=== PATIENT | female | born 1980 | race Two or more races ===

== ENCOUNTER 2024-09-09 14:20 | Emergency (ER) | payer MEDICAID, OTHER ==
[~2024-09-09] VITALS: Ht 167.6 cm; Wt 81.0 kg
--- NOTE | 2024-09-09 14:31 | ED.PDOC ---
History of Present Illness HPI Comments 44 year old female brought in by EMS presents to the ED with a chief complaint of PICC line removal onset today (09/09/24). Per EMS, patient is at assisted care facility due to an infected dog bite on LT arm, received antibiotics treatment. Facility tried to remove PICC line from RT chest, were unable to, was sent to ED. Patient has no further complaints. PMHx HTN. Denies headache, dizziness, chest pain, shortness of breath, nausea, vomiting, diarrhea. No other symptoms or modifying factors present at this time. Chief Complaint: Tube Replacement Time Seen by MD: 14:22 Reviewed Notes: Medications, Allergies Allergies: Coded Allergies: NO KNOWN ALLERGIES (Unverified , 09/09/24) Information Source: Patient, Emergency Med Personnel Mode of Arrival: EMS Severity: Moderate Timing: Hours Duration: Since onset Prehospital treatment: None Past Medical History PAST MEDICAL HISTORY: HTN Surgical History: Denies all surgeries GROUP SOCIAL WORKER History: No Pertinent GROUP SOCIAL WORKER History Family History Family History: Reviewed,noncontributory to illness, No family hx of Cancer, No family hx of DM, No family hx of Heart aruna, No family hx of HTN, No family hx ofKidney aruna, No family hx of Liver aruna, No family hx of Lung aruna, No family hx of Stroke Social History Smoker: Non-Smoker Alcohol: Denies ETOH Use Drugs: Denies Drug Use Lives In: Assisted Care Constitutional: denies: chills, diaphoresis, fatigue, fever, malaise, sweats, weakness, others EENTM: denies: blurred vision, double vision, ear bleeding, ear discharge, ear drainage, ear pain, ear ringing, eye pain, eye redness, hearing loss, mouth pain, mouth swelling, nasal discharge, nose bleeding, nose congestion, nose pain, photophobia, tearing, throat pain, throat swelling, voice changes, others Respiratory: denies: cough, hemoptysis, orthopnea, SOB at rest, shortness of breath, SOB with excertion, stridor, wheezing, others Cardiovascular: denies: chest pain, dizzy spells, diaphoresis, Dyspnea on exertion, edema, irregular heart beat, left arm pain, lightheadedness, palpitations, PND, syncope, others Gastrointestinal: denies: abdomen distended, abdominal pain, blood streaked bowels, constipated, diarrhea, dysphagia, difficulty swallowing, hematemesis, melena, nausea, poor appetite, poor fluid intake, rectal bleeding, rectal pain, vomiting, others Genitourinary: denies: abnormal vagina bleeding, burning, dyspareunia, dysuria, flank pain, frequency, hematuria, incontinence, pain, , vagina discharge, urgency, others Neurological: denies: dizziness, fainting, headache, left sided numbness, left sided weakness, numbness, paresthesia, pre-existing deficit, right sided numbness, right sided weakness, seizure, speech problems, tingling, tremors, weakness, others Musculoskeletal: denies: back pain, gout, joint pain, joint swelling, muscle pain, muscle stiffness, neck pain, others Integumetry: denies: bruises, change in color, change in hair/nails, dryness, laceration, lesions, lumps, rash, wounds, others Allergic/Immunocompromised: denies: Difficulty Healing, Frequent Infections, Hives, Itching, others Hematologic/Lymphatic: denies: anemia, blood clots, easy bleeding, easy bruising, swollen glands, others Endocrine: denies: excessive hunger, excessive sweating, excessive thirst, excessive urination, flushing, intolerance to cold, intolerance to heat, unexplained weight gain, unexplained weight loss, others Psychiatric: denies: anxiety, bipolar disorder, depression, hopeless, panic disorder, schizophrenia, sleepless, suicidal, others All Other Systems: Reviewed and Negative Physical Exam General Appearance: No Apparent Distress, Normal HEENT: Normal ENT Inspection, Pharynx Normal, TMs Normal Neck: Full Range of Motion, Non-Tender, Normal, Normal Inspection Respiratory: Chest Non-Tender, Lungs Clear, No Accessory Muscle Use, No Re spiratory Distress, Normal Breath Sounds Cardiovascular: No Edema, No JVD, No Murmur, No Gallop, Normal Peripheral Pulses, Regular Rate/Rhythm Breast Exam: Deferred Gastrointestinal: No Organomegaly, Non Tender, No Pulsatile Mass, Normal Bowel Sounds, Soft Genitalia: Deferred Pelvic: Deferred Rectal: Deferred Extremities: No calf tenderness, Normal capillary refill, Normal inspection, Normal range of motion, Non-tender, No pedal edema Musculoskeletal : Apperance: Normal Neurologic: Alert, mail machine operator II-XII nml as Tested, No Motor Deficits, Normal Affect, Normal Mood, No Sensory Deficits Cerebellar Function: Normal Reflexes: Normal Skin: Dry, Normal Color, Warm Lymphatic: No Adenopathy Was a procedure done? Was a procedure done?: No Differential Dx Considerations may include: tunnel iv access removal, evaluation, infection, malfunction X-Ray, Labs, Meds, VS Vital Signs Date Time Temp Pulse Resp B/P (MAP) Pulse Ox O2 Delivery O2 Flow Rate FiO2 09/09/24 14:30 98.7 92 18 138/98 (111) 99 98.7 Time of 1ST Reevaluation: 14:52 Reevaluation 1ST: Unchanged Time of 2ND Reevaluation: 16:22 Reevaluation 2ND: Unchanged Patient Education/Counseling: Diagnosis, Treatment, Prognosis, Need For Follow Up Family Education/Counseling: No Family Present Additional Information The following tests were ordered, and results were reviewed by me: JONAH CHEST Additional Information was gathered from interviewing the following independent historians: EMS I reviewed and agreed with the following test results read by other providers: JONAH CHEST I discussed treatment and results with medical personnel and: Patient due to confusion about medical records, as pt was registered as n new patient, we were unable to find the record of the iv placement. this was finally found by the pICC RN, who saw a record that this is an IR placed line and needs to be removed by IR. pt will have to schedule to return for line removal with IR Departure 1 Departure Time of Disposition: 16:23 Impression: Primary Impression: Tunneled central venous catheter present Disposition: 01 HOME / SELF CARE / HOMELESS Condition: Good Additional Instructions: please have your doctor arrange for interventional radiology to remove the unuse d tunnel iv line. you may also come to the ER if unable to make arrangement Discharged With: Self Critical Care Note Critical Care Time?: No Stability Stability form required: No I personally scribed for KAUSHIK POTTER MD ([email or web address]) on 09/09/24 at 14:31. Electronically submitted by Pratibha Winn ([email or web address]). I personally scribed for KAUSHIK POTTER MD ([email or web address]) on 09/09/24 at 14:31. Electronically submitted by Pratibha Winn ([email or web address]). KAUSHIK POTTER MD Sep 09, 2024 14:31
--- NOTE | 2024-09-09 14:58 | DVH ---
CHEST RADIOGRAPH Indication: cvc position Technique: Single frontal view of the chest was obtained Comparison: None FINDINGS: Lines and Tubes: Right internal jugular catheter in place in superior vena cava above the right atriu m Lungs: No focal consolidation. Pleura: No effusion. PNEUMOTHORAX: NONe VISUALIZED.. Cardiomediastinal contours: Unremarkable Bones: No acute osseous abnormality. IMPRESSION: 1. Right internal jugular catheter good position in the distal superior vena cava above the right atr ium. 2. No pneumothorax on the right.
[2024-09-09 19:14] VITALS: BP 150/96; TEMP 98.1
[2024-09-09 19:16] VITALS: PULSE 89; RESP 19; O2SAT 97
== END 2024-09-09 20:13 | disposition home or self-care (01) ==
LOC: ER 14:20 → EDBD 14:20 → ER 20:13
DX: Z95.9 Presence of cardiac and vascular implant and graft, unspecified (principal); I10 Essential (primary) hypertension
CPT/HCPCS: 71045

== ENCOUNTER 2024-09-13 05:55 | Emergency (ER) | payer MEDICAID ==
[~2024-09-13] VITALS: Ht 167.6 cm; Wt 83.0 kg
--- NOTE | 2024-09-13 06:58 | ED.PDOC ---
History of Present Illness HPI Comments 44F presents to the ER w/ no prior Hx associated to the c/c of Tube removal. Pt reports that she is from [facility] due from an infected dog bite on the left forearm/right tricep on July 17, which have currently healed into a scar. Myrna Hansen tried to remove PICC line from RT chest, were unable to, so the pt went to the ED. PMHx of HTN. Denies chills, fever, N/V/D, SOB, CP no other associated symptoms, modifiers, recent injuries or sick contacts at this time. Chief Complaint: Tube Replacement Time Seen by MD: 06:50 Reviewed Notes: Nurses Notes, Medications, Allergies Allergies: Coded Allergies: NO KNOWN ALLERGIES (Unverified , 09/09/24) Information Source: Patient Mode of Arrival: Ambulatory Severity: Moderate Timing: Came on: Gradually Duration: Since onset Prehospital treatment: None Past Medical History PAST MEDICAL HISTORY: HTN Surgical History (Other): PICC Line TRAFFIC RATE ANALYST History: No Pertinent TRAFFIC RATE ANALYST History Family History Family History: Reviewed,noncontributory to illness, Unknown Social History Smoker: Non-Smoker Alcohol: Denies ETOH Use Drugs: Denies Drug Use Lives In: Assisted Care Constitutional: reports: others (PICC Line Removal); denies: chills, diaphoresis, fatigue, fever, malaise, sweats, weakness EENTM: denies: blurred vision, double vision, ear bleeding, ear discharge, ear drainage, ear pain, ear ringing, eye pain, eye redness, hearing loss, mouth pain, mouth swelling, nasal discharge, nose bleeding, nose congestion, nose pain, photophobia, tearing, throat pain, throat swelling, voice changes, others Respiratory: denies: cough, hemoptysis, orthopnea, SOB at rest, shortness of breath, SOB with excertion, stridor, wheezing, others Cardiovascular: denies: chest pain, dizzy spells, diaphoresis, Dyspnea on exertion, edema, irregular heart beat, left arm pain, lightheadedness, palpitations, PND, syncope, others Gastrointestinal: denies: abdomen distended, abdominal pain, blood streaked bowels, constipated, diarrhea, dysphagia, difficulty swallowing, hematemesis, melena, nausea, poor appetite, poor fluid intake, rectal bleeding, rectal pain, vomiting, others Genitourinary: denies: abnormal vagina bleeding, burning, dyspareunia, dysuria, flank pain, frequency, hematuria, incontinence, pain, , vagina discharge, urgency, others Neurological: denies: dizziness, fainting, headache, left sided numbness, left sided weakness, numbness, paresthesia, pre-existing deficit, right sided numbness, right sided weakness, seizure, speech problems, tingling, tremors, weakness, others Musculoskeletal: denies: back pain, gout, joint pain, joint swelling, muscle pain, muscle stiffness, neck pain, others Integumetry: denies: bruises, change in color, change in hair/nails, dryness, laceration, lesions, lumps, rash, wounds, others Allergic/Immunocompromised: denies: Difficulty Healing, Frequent Infections, Hives, Itching, others Hematologic/Lymphatic: denies: anemia, blood clots, easy bleeding, easy bruising, swollen glands, others Endocrine: denies: excessive hunger, excessive sweating, excessive thirst, excessive urination, flushing, intolerance to cold, intolerance to heat, unexplained weight gain, unexplained weight loss, others Psychiatric: denies: anxiety, bipolar disorder, depression, hopeless, panic disorder, schizophrenia, sleepless, suicidal, others All Other Systems: Reviewed and Negative Physical Exam General Appearance: Moderate Distress, Normal HEENT: Normal ENT Inspection, Pharynx Normal, TMs Normal Neck: Full Range of Motion, Non-Tender, Normal, Normal Inspection Respiratory: Chest Non-Tender, Lungs Clear, No Accessory Muscle Use, No Respiratory Distress, Normal Breath Sounds Cardiovascular: No Edema, No JVD, No Murmur, No Gallop, Normal Peripheral Pulses, Regular Rate/Rhythm Breast Exam: Deferred Gastrointestinal: No Organomegaly, Non Tender, No Pulsatile Mass, Normal Bowel Sounds, Soft Genitalia: Deferred Pelvic: Deferred Rectal: Deferred Extremities: No calf tenderness, Normal capillary refill, Normal inspection, Normal range of motion, Non-tender, No pedal edema Musculoskeletal : Apperance: Normal Neurologic: Alert, certified addiction counselor II-XII nml as Tested, No Motor Deficits, Normal Affect, Normal Mood, No Sensory Deficits Cerebellar Function: Normal Reflexes: Normal Skin: Dry, Normal Color, Warm Peripheral Pulses: 3+ Radial (R), 3+ Radial (L) Lymphatic: No Adenopathy Was a procedure done? Was a procedure done?: No Differential Dx Considerations may include: Power line X-Ray, Labs, Meds, VS Vital Signs Date Time Temp Pulse Resp B/P (MAP) Pulse Ox O2 Delivery O2 Flow Rate FiO2 09/13/24 06:18 98.1 93 16 141/91 (108) 97 98.1 Patient alert. Came in because she has a power line in place for many months. Vitals stable. Answering questions. Ambulating. Dog wound healing well. Power line in place. Radiology consultation for removal a power line. Reviewed her previous visit. Explained to the patient. Was told to follow up with her primary care physician. Was told to come back if there is any problem. Time of 1ST Reevaluation: 07:20 Reevaluation 1ST: Improved Patient Education/Counseling: Diagnosis, Treatment, Prognosis Family Education/Counseling: No Family Present Departure 1 Departure Time of Disposition: 07:13 Impression: Primary Impression: Tunneled central venous catheter present Disposition: 01 HOME / SELF CARE / HOMELESS Condition: Good Discharged With: Self Critical Care Note Critical Care Time?: No Stability Stability form required: No Heart Score Heart Score: Heart Score Response (Comments) Value History N/A 0 EKG N/A 0 Age N/A 0 Risk Factors N/A 0 Troponin N/A 0 Total 0 I personally scribed for AMANDA DAVIS MD ([email or web address]) on 09/13/24 at 06:58. Electronically submitted by Cleveland Head ([email or web address]). AMANDA DAVIS MD Sep 13, 2024 06:58
--- NOTE | 2024-09-13 08:53 | DVH ---
CHEST RADIOGRAPH Indication: POST TUNNELED POWER-LINE REMOVAL Technique: Single frontal view of the chest was obtained Comparison: XY CHEST PORTABLE on DOS: 09/09/24 FINDINGS: Lines and Tubes: None Lungs: The left lateral hemithorax is excluded. No focal consolidation. Pleura: No effusion. No pneumothorax. Cardiomediastinal contours: Unremarkable Bones: No acute osseous abnormality. IMPRESSION: 1. No acute cardiopulmonary disease.
[2024-09-13 09:12] VITALS: BP 132/76; PULSE 82; RESP 20; TEMP 97.9; O2SAT 96
== END 2024-09-13 09:20 | disposition home or self-care (01) ==
LOC: ER 05:55
DX: Z45.2 Encounter for adjustment and management of vascular access device (principal); I10 Essential (primary) hypertension
CPT/HCPCS: 71045